=== PATIENT | female | born 1980 | race Caucasian/White ===

== ENCOUNTER 2019-12-30 21:10 | Outpatient (REF) | payer MEDICAID, SELFPAY ==
[2019-12-30 20:26] LABS: HCT 40.6 % (36.0-46.0); HGB 13.1 g/dL (12.0-15.5); Mean Corp. HGB Concentration 32.3 g/dL (32.0-36.0); Mean Corpuscular Hemoglobin 29.4 pg (27.0-33.0); Mean Corpuscular Volume 91.2 fL (80-95); Mean Platelet Volume 10.6 fL (8.0-11.0); Platelet Count 363 x1000/uL (130-400); RBC 4.45 m/cumm (4.00-5.20); RBC Distribution Width 12.3 % (11.7-14.6); White Blood Cell Count 8.02 k/cumm (4.4-10.8)
[2019-12-30 20:46] LABS: Anion Gap 7.4 mmol/L (3-11); BUN 7 mg/dL (7-18); CO2 30.6 mmol/L (21.0-32.0); CREATININE 0.71 mg/dL (0.55-1.02); Calcium 8.8 mg/dL (8.5-10.1); Calculated LDL 121 mg/dL (<100); Chloride 104 mmol/L (98-107); Cholesterol 207 mg/dL (<200); Glucose 102 mg/dL (74-106); HDL Cholesterol 70 mg/dL (40-60); Potassium 4.1 mmol/L (3.5-5.1); Sodium 142 mmol/L (136-145); TSH 1.48 uIU/mL (0.36-3.74); Triglyceride 84 mg/dL (<150)
[2019-12-30 21:04] LABS: Hemoglobin A1C 5.7 % (3.8-5.6)
== END 2019-12-30 21:30 ==
LOC: NCHCN 21:10
PROVIDERS: PCP Internal Medicine; Visit Provider Internal Medicine
DX: F33.9 Major depressive disorder, recurrent, unspecified (principal); F11.20 Opioid dependence, uncomplicated; M54.5 Low back pain; E66.3 Overweight
CPT/HCPCS: 80048; 80061; 85027; 83036; 84443

== ENCOUNTER 2020-09-02 16:05 | Outpatient (REF) | payer MEDICAID, SELFPAY ==
[2020-09-04 12:03] LABS: COVID-19 RT-PCR UVMMC Result Negative (Negative)
== END 2020-09-02 16:25 ==
LOC: NCHCN 16:05
PROVIDERS: PCP Internal Medicine; Visit Provider Internal Medicine
DX: R50.9 Fever, unspecified (principal); Z20.828 Contact with and (suspected) exposure to other viral communicable diseases
CPT/HCPCS: U0003

== ENCOUNTER 2021-11-08 16:26 | Outpatient (REF) | payer MEDICAID, SELFPAY ==
[2021-11-08 21:00] LABS: Mono Screening Negative (Negative)
[2021-11-10 11:45] LABS: COVID-19 RT-PCR UVMMC Result Negative (Negative)
== END 2021-11-08 16:27 | disposition home or self-care (01) ==
LOC: NCHCN 16:26
PROVIDERS: PCP Internal Medicine; Visit Provider Nurse Practitioner Family
DX: J02.9 Acute pharyngitis, unspecified (principal); R50.9 Fever, unspecified
CPT/HCPCS: U0003; 86308

== ENCOUNTER 2023-03-28 16:45 | Outpatient (REF) | payer MEDICAID, SELFPAY ==
--- NOTE | 2023-03-28 16:30 | PAPFT_PTH ---
PATIENT: Janel Hogue [id number] AGE/SX: 42/F ROOM: RE03/28/[address]: Lazaro Ty : 1980 BED: DIS: 03/28/2023 SPEC #: [id number] RECD: 03/29/23 12:55 STATUS: KELLY REEbony #: [id number] GUME: 03/28/23 16:[address]: Lazaro Ty DEPT: [facility] Cytology RECD BY: Marisol Lundberg Tissues: 1 - CX/ENDOCX FOR PAP SMEARS Procedures: PAP THIN PREP/UVM Screening HPV DNA PROBE Comments: [id number]
--- OUTSIDE RECORDS SUMMARY | 2023-03-28 16:48 | XMS_ITS | Continuity of Care Document ---
Author Name Unknown Organization [facility] Address [address] [place] [address] Care Team Providers Care Coremaker Apprentice Name Role Phone Primeau Lazaro SAENZ Primary Care Physician Encounter [facility] Date(s): 11/29/22 - 11/29/[address] [address] Encounter Diagnosis , missed(Discharge Diagnosis) - 11/29/22 Discharge Disposition: Home or Self Care Attending Physician: Cornelius aMry MD Admitting Physician: Cornelius Mary MD Referring Physician: Cornelius Mary MD Allergies, Adverse Reactions, Alerts Substance Reaction Severity Status codeine Unknown Active Assessment and Plan Future Appointments Future Scheduled Tests Laboratory* Cell Free DNA [facility] 11/21/22 Radiology* US OB Transvaginal 12/10/22 Immunizations Given and Recorded Vaccine Date Status Refusal Reason influenza virus vaccine, inactivated 1 09/10/22 Re corded influenza virus vaccine, live 10/30/21 Recorded SARS-CoV-2 (COVID-19) mRNA-1273 vaccine 10/30/21 R ecorded SARS-CoV-2 (COVID-19) mRNA BNT-162b2 vax 12/14/20 Recorded SARS-CoV-2 (COVID-19) mRNA BNT-162b2 vax 11/23/20 Recorded tetanus/diphth/pertuss (Tdap) adult/adol 10/30/13 Recorded 1Result Comment: [employer] Medications amoxicillin-clavulanate 875 mg-125 mg oral tablet 1 tab, Oral, every 12 hr Start Date: 06/27/22 Status: Ordered azithromycin 250 mg oral tablet Start Date: 06/27/22 Status: Ordered ibuprofen 800 mg oral tablet 800 mg = 1 tab, Oral, every 8 hr, PRN other (see comment), as needed Start Date: 06/27/22 Status: Ordered Problem List Condition Confirmation Course Effective Dates Status Health St [facility] Informant Anxiety disorder Confirmed 09/10/18 Active Atypical squamous cells of undetermined significance on cervical Papanicolaou smear Confirmed 07/20/19 Active Cyst of ovary Confirmed Active Drug dependence Confirmed 09/10/18 Active Female genital organ symptoms Confirmed Active Low back pain Confirmed 09/10/18 Active Obesity Confirmed 07/20/19 Active Opioid dependence Confirmed 07/20/19 Active Confirmed 10/02/22 Active Varicose veins of lower extremity Confirmed 09/10/18 Active Procedures Procedure Date Related Diagnosis Body Site Status Appendectomy 11/10/01 Completed Unlisted laparoscopy procedu re, oviduct, ovary Completed Social History Social History Type Response Tobacco Current some day tob acco user Tobacco Use:. Sex Female Patient Care team information Personnel Name: Karson [facility], Lazaro Bartlett MD Address: Address: [address] [address]- [place]
--- OUTSIDE RECORDS SUMMARY | 2023-03-28 16:48 | XMS_ITS | Continuity of Care Document ---
Author Name Unknown Organization [facility] Address [address] [place] [address] Care Team Providers Care Anvil Seating Press Operator Name Role Phone Primeau Lazaro SAENZ Primary Care Physician Encounter [facility] Date(s): 11/26/22 - 11/26/[address] [address] Encounter Diagnosis Missed period(Discharge Diagnosis) - 11/26/22 Discharge Disposition: Home or Self Care Attending Physician: Cornelius Mary MD Admitting Physician: Cornelius Mary MD Referring Physician: Cornelius Mary MD Allergies, Adverse Reactions, Alerts Substance Reaction Severity Status codeine Unknown Active Assessment and Plan Future Appointments Future Scheduled Tests Laboratory* Cell Free DNA [facility] 11/21/22 Immunizations Given and Recorded Vaccine Date Status [...] Patient Care team information Personnel Name: Karson ROQUE, Lazaro Bartlett MD Address: Address: [address] [address]- [place]
--- OUTSIDE RECORDS SUMMARY | 2023-03-28 16:48 | XMS_ITS | Continuity of Care Document ---
Author Name Unknown Organization [facility] Address [address] [place] [address] Care Team Providers Care Tire Stripper Name Role Phone au Lazaro ROQUE Primary Care Physician Encounter [facility] Date(s): 12/03/22 - 12/03/[address] [address] Discharge Disposition: Home or Self Care Attending Physician: Adrianne Bailey CNM Admitting Physician: Adrianne Bailey CNM Referring Physician: Adrianne Bailey CNM Allergies, Adverse Reactions, Alerts Substance Reaction Severity Status codeine Unknown Active Assessment and Plan Future Appointments Future Scheduled Tests Laboratory* Beta hCG Quantitative 12/05/21 * Cell Free DNA [facility] 11/21/22 Radiology* US [...] Unlisted laparoscopy procedu re, oviduct, ovary Completed Results Laboratory List Name Date Beta hCG Quantitative 12/03/22 Most recent to oldest [Reference Range]: 1 Beta hCG Qnt [1-6 mIntlUnit/mL] 8103 mIn tlUnit/mL *HI* (12/03/22 3:12 PM) Social History Social History Type Response Tobacco Current some day tob acco user Tobacco Use:. Sex Female Patient Care team information Personnel [facility]: [facility] Address: Address: [address] [address]- [place]
--- OUTSIDE RECORDS SUMMARY | 2023-03-28 16:48 | XMS_ITS | Continuity of Care Document ---
Author Name Unknown Organization [facility] Address [address] [place] [address] Care Team Providers Care Associate Justice Name Role Phone Primeau Lazaro SAENZ Primary Care Physician Encounter [facility] Date(s): 11/26/22 - 11/26/[address] [address] Discharge Disposition: Home or Self Care Attending Physician: Cornelius Mary MD Admitting Physician: Cornelius Mary MD Referring Physician: Cornelius Mary MD Allergies, Adverse Reactions, Alerts Substance Reaction Severity Status codeine Unknown Active Assessment and Plan Future Appointments Diagnostic Tests Pending * Hepatitis B Surface Antigen [facility] 11/26/22 * Rubella IgG Antibody [facility] 11/26/22 * Syphilis Serology [facility] 11/26/22 * HIV 1/2 Ag and Ab, 4th Generation [facility] 11/26/22 * Hepatitis C Ab w/Rflx to HCV RNA PCR [facility] 11/26/22 * Cystic Fibrosis 106-Mutation Panel [facility] 11/26/22 Future Scheduled Tests Laboratory* Cell Free DNA [...] ovary Completed Results Laboratory List Name Date ABO/Rh 11/26/22 Antibody Screen Gel 11/26/22 CBC w/o Diff 11/26/22 Urinalysis with Microscopic 11/26/22 Urinalysis Microscopic 11/26/22 Most recent to oldest [Reference Range]: 1 WBC [5.0-10.0 x10^3/mcL] 13.3 x10^3/mcL *HI* (11/26/22 11:27 AM) RBC [4.1-5.3 x10^6/mcL] 4.2 x10^6/mcL (11/26/22 11:27 AM) UA Color Pale Yellow (11/26/22 11:27 AM) UA WBC [0-3] 0-3 (11/26/22 11:27 AM) ABO/Rh Type A POS *Unknown* (11/26/22 11:27 AM) MCV [80.0-96.0] 89.9 (11/26/22 11:27 AM) UA Urobilinogen Normal (11/26/22 11:27 AM) UA Bili [Negative] Negative (11/26/22 11:27 AM) UA Ketones Negative (11/26/22 11:27 AM) MCHC [31.0-35.0 g/dL] 31.9 g/dL (11/26/22 11:27 AM) UA RBC [0-2] 0-2 (11/26/22 11:27 AM) UA Leuk Est 1+ *ABN* (11/26/22 11:27 AM) UA Nitrite Negative (11/26/22 11:27 AM) UA Glucose [Negative] Negative (11/26/22 11:27 AM) Hct [37.0-47.0 %] 37.3 % (11/26/22 11:27 AM) UA Bacteria None Seen /HPF (11/26/22 11:27 AM) UA Protein Negative (11/26/22 11: AM) MCH [26.0-32.0 pg] 28.7 pg (11/26/22 11:27 AM) Hgb [12.0-16.0 g/dL] 11.9 g/dL *LOW* (11/26/22 11:27 AM) UA Blood Negative (11/26/22 11:27 AM) UA Spec Grav <=1.005 *NA* (11/26/22 11:27 AM) Platelets [130-450 x10^3/mcL] 364 x10^3/ mcL (11/26/22 11:27 AM) UA Squam Epithelial [None Seen] Few *ABN* (11/26/22 11:27 AM) UA Sperm Rare (11/26/22 11:27 AM) UA pH 6.5 *NA* (11/26/22 11:27 AM) UA Appear Clear (11/26/22 11:27 AM) RDW-CV [11.7-17.0 %] 15.3 % (11/26/22 11:27 AM) UA Culture Ind?. Not Applicable (11/26/22 11:27 AM) Antibody Screen Gel Negative ABSC (11/26/22 11:27 AM) Orders for Microbiology Reports Name Date Urine Culture 11/26/22 Microbiology Reports TEST:Urine Culture STATUS:Order in Progress BODY SITE: SOURCE:Urine COLLECTED DATE/TIME:11/26/22 11:43 AM PRELIMINARY REPORT <10,000 cfu/ml Gram Positive Cocci Social History Social History Type Response Tobacco Current some day tob acco user Tobacco Use:. Sex Female Patient Care team information Personnel Name: Lazaro Enriquez MD Address: Address: [address] [address]- [place]
== END 2023-03-28 16:46 | disposition home or self-care (01) ==
LOC: NCHCN 16:45
PROVIDERS: PCP Internal Medicine; Visit Provider Internal Medicine
DX: Z12.4 Encounter for screening for malignant neoplasm of cervix (principal); Z11.51 Encounter for screening for human papillomavirus (HPV)
CPT/HCPCS: 88142; 87624

== ENCOUNTER 2025-01-06 16:20 | Outpatient (REF) | payer OTHER, SELFPAY ==
[2025-01-06 20:20] LABS: ALT 22 U/L (14-59); BUN 10 mg/dL (7-18); CREATININE 0.8 mg/dL (0.55-1.02); Calcium 9.1 mg/dL (8.5-10.1); Calculated LDL 108 mg/dL (<100); Chloride 106 mmol/L (98-107); Cholesterol 207 mg/dL (<200); Estimated GFR 92.54 (mL/min/1.73m2); Glucose 116 mg/dL (74-106); HDL Cholesterol 77 mg/dL (40-60); Sodium 141 mmol/L (136-145); TSH 1.29 uIU/mL (0.36-3.74); Triglyceride 113 mg/dL (<150)
[2025-01-06 20:23] LABS: Anion Gap 10.7 mmol/L (3-11); CO2 24.3 mmol/L (21.0-32.0)
== END 2025-01-06 16:21 | disposition home or self-care (01) ==
LOC: NCHCN 16:20
PROVIDERS: PCP Internal Medicine; Visit Provider Internal Medicine
DX: E66.9 Obesity, unspecified (principal)
CPT/HCPCS: 80048; 80061; 84443; 84460

== ENCOUNTER 2025-06-11 19:28 | Outpatient (REF) | payer OTHER, SELFPAY ==
[2025-06-11 19:02] LABS: Abs Immature Grans 0.03 10^3/uL (0.0-0.06); HCT 38.7 % (36.0-46.0); HGB 12.8 g/dL (11.2-15.7); Immature Grans % 0.3 %; MCH 30.6 pg (27.0-33.0); MCHC 33.1 % (32.0-36.0); MCV 93 fL (80-95); MPV 9.9 fL (8.0-11.0); Platelet Count 340 10^3/uL (130-400); RBC 4.18 10^6/uL (3.93-5.22); RDW 12.7 % (11.7-14.6); RDW-SD 43.1 fL; WBC 10.09 10^3/uL (4.4-10.8)
[2025-06-11 19:20] LABS: ALT 61 U/L (14-59); AST 23 U/L (15-37); Albumin 3.9 g/dL (3.4-5.0); Alkaline Phosphatase 64 U/L (46-116); Anion Gap 7.2 mmol/L (3-11); BUN 7 mg/dL (7-18); Bilirubin, Total 0.7 mg/dL (0.2-1.0); CO2 28.8 mmol/L (21.0-32.0); Calcium 9.4 mg/dL (8.5-10.1); Chloride 103 mmol/L (98-107); Estimated GFR 80.34 (mL/min/1.73m2); Glucose 108 mg/dL (74-106); Potassium 4.1 mmol/L (3.5-5.1); Sodium 139 mmol/L (136-145); Total Protein 7.3 g/dL (6.4-8.2)
== END 2025-06-11 19:29 | disposition home or self-care (01) ==
LOC: NCHCN 19:28
PROVIDERS: PCP Internal Medicine; Visit Provider Physician Assistant
DX: R10.11 Right upper quadrant pain (principal)
CPT/HCPCS: 80053; 85025